=== PATIENT | male | born 1960 | race Caucasian/White ===

== ENCOUNTER 2018-09-03 10:48 | Emergency (ER) | payer MEDICAID ==
[~2018-09-03] VITALS: Ht 182.9 cm; Wt 99.8 kg
[~2018-09-03 10:48] MED LIST: ACET-1172; ASPI-858; DONE5TAB3; HYDR25TA4; LEVO150T8; LIP40; MECL12.584; METO-542; [UNRECOGNIZED DRUG - CODE]
[2018-09-03 10:55] VITALS: BP_SYST 154
[2018-09-03] MEDS ORDERED: KETOROLAC TROMETHAMINE 30 MG VIAL IM ONE (11:15)
[2018-09-03] MEDS ORDERED: DEXAMETHASONE SOD PHOSPHATE 10 MG/ML VIAL IM ONE (11:15)
[2018-09-03 13:11] VITALS: BP_SYST 139
== END 2018-09-03 13:10 | disposition home or self-care (01) ==
LOC: SED 10:48
DX: M47.896 Other spondylosis, lumbar region (principal); M54.30 Sciatica, unspecified side; I10 Essential (primary) hypertension; Z86.73 Personal history of transient ischemic attack (TIA), and cerebral infarction without residual deficits; Z79.82 Long term (current) use of aspirin; Z79.899 Other long term (current) drug therapy
CPT/HCPCS: 73502; 72131; 93005; 96372; 99284; J1100; J1885

== ENCOUNTER 2018-09-19 17:13 | Emergency (ER) | payer MEDICAID ==
[~2018-09-19] VITALS: Ht 182.9 cm; Wt 104.3 kg
[2018-09-19 17:30] VITALS: BP_SYST 134
[2018-09-19] MEDS ORDERED: fentaNYL CITRATE/PF 100 MCG/2 ML AMP IM ONE (18:00)
[2018-09-19 18:18] VITALS: BP_SYST 134
== END 2018-09-19 18:18 | disposition home or self-care (01) ==
LOC: SED 17:13
DX: M54.32 Sciatica, left side (principal); I10 Essential (primary) hypertension; Z86.73 Personal history of transient ischemic attack (TIA), and cerebral infarction without residual deficits; Z79.82 Long term (current) use of aspirin; Z79.899 Other long term (current) drug therapy
CPT/HCPCS: 96372; 99283; J3010

== ENCOUNTER 2018-10-04 19:35 | Emergency (ER) | payer MEDICAID ==
[~2018-10-04] VITALS: Ht 182.9 cm; Wt 104.3 kg
[2018-10-04 19:47] VITALS: BP_SYST 126
[2018-10-04] MEDS ORDERED: DEXAMETHASONE SOD PHOSPHATE 10 MG/ML VIAL IM ONE (20:30)
[2018-10-04] MEDS ORDERED: MORPHINE 4 MG/ML INJ. SYRINGE IM ONE ×2 (20:30→22:15)
[2018-10-04] MEDS ORDERED: KETOROLAC TROMETHAMINE 60 MG/2 ML VIAL IM ONE (23:15)
[2018-10-04] MEDS ORDERED: METHOCARBAMOL 500 MG TABLET PO ONE (23:15)
[2018-10-05 00:45] VITALS: BP_SYST 124
== END 2018-10-05 00:45 | disposition home or self-care (01) ==
LOC: SED 19:35
DX: M54.30 Sciatica, unspecified side (principal); R03.0 Elevated blood-pressure reading, without diagnosis of hypertension; I10 Essential (primary) hypertension; Z86.73 Personal history of transient ischemic attack (TIA), and cerebral infarction without residual deficits; Z79.82 Long term (current) use of aspirin; Z79.899 Other long term (current) drug therapy
CPT/HCPCS: 96372; 99283; J1100; J1885; J2270

== ENCOUNTER 2019-07-10 15:24 | Emergency (ER) | payer MEDICAID ==
[~2019-07-10] VITALS: Ht 180.3 cm; Wt 99.8 kg
[2019-07-10 15:28] VITALS: BP_SYST 129
[2019-07-10 17:11] LABS: BASOPHILS % (AUTO) 0.3 % (0.0-2.0); EOSINOPHILS # (AUTO) 0.1 K/uL (0.0-0.4); EOSINOPHILS % (AUTO) 1.3 % (0.0-4.0); HEMOGLOBIN 14.9 g/dL (14.0-18.0); LYMPHOCYTES # (AUTO) 1.5 K/uL (1.0-5.5); LYMPHOCYTES % (AUTO) 14.5 % (20.5-51.5); MEAN CORPUSCULAR HEMOGLOBIN 33 pg (27-31); MEAN CORPUSCULAR HGB CONC 34 % (32-36); MEAN CORPUSCULAR VOLUME 97 fL (79.0-98.0); MONOCYTES # (AUTO) 1.2 K/uL (0.0-1.0); MONOCYTES % (AUTO) 11.5 % (1.7-9.3); NEUTROPHILS # (AUTO) 7.4 K/uL (1.8-7.7); NEUTROPHILS % (AUTO) 72.4 % (40.0-70.0); PLATELET COUNT (AUTO) 219 K/uL (130-430); RED BLOOD CELL COUNT(AUTO) 4.52 MIL/uL (4.2-6.2); WHITE BLOOD COUNT (AUTO) 10.2 K/uL (4.8-10.8)
[2019-07-10 17:30] LABS: CALCIUM 9.1 mg/dL (8.4-11.0); CREATININE 0.95 mg/dL (0.55-1.30); POTASSIUM 3.5 mmol/L (3.5-5.1)
[2019-07-10 17:31] LABS: INR 0.9 (0.80-1.20); PROTHROMBIN TIME 9.3 SECS (9.5-12.5)
[2019-07-10 17:46] LABS: ALBUMIN 3.6 g/dL (3.4-4.8); C-REACTIVE PROTEIN QUANT 3.9 mg/dL (0-0.5); TOTAL BILIRUBIN 0.3 mg/dL (0.0-1.0)
[2019-07-10] MEDS ORDERED: IOHEXOL 100 ML IV ONE (17:57)
[2019-07-10] MEDS ORDERED: CLINDAMYCIN 600 MG in D5W 50 ML IV ONE (18:45)
[2019-07-10] MEDS ORDERED: CLINDAMYCIN 600 mg/50mL D5W 50 ML IV ONE (19:10)
[2019-07-10 20:09] VITALS: BP_SYST 129
== END 2019-07-10 20:09 | disposition home or self-care (01) ==
LOC: SED 15:24
DX: I88.8 Other nonspecific lymphadenitis (principal); I10 Essential (primary) hypertension; Z86.73 Personal history of transient ischemic attack (TIA), and cerebral infarction without residual deficits; Z79.82 Long term (current) use of aspirin; Z79.899 Other long term (current) drug therapy
CPT/HCPCS: 36415; 70491; 80053; 83605; 85025; 85610; 85730; 86140; 96365; 99284; J3490; Q9967